=== PATIENT | male | born 1955 | race Caucasian/White ===

== ENCOUNTER → 2020-07-26 07:58 | Outpatient (CLI) | payer OTHER, SELFPAY ==
--- NOTE | 2020-07-26 08:03 | CT_ITS ---
STUDY: LOW DOSE CT LUNG CANCER SCREENING REASON FOR EXAM: Male, 64 years old. COPD/LUNG NODULES, LUNG SCREENING, SMOKER-1PPD X 40 YRS RADIATION DOSAGE (If Supplied By Facility): CTDIvol = ( 3.22 ) mGy, DLP = ( 110.23 ) mGycm TECHNIQUE: No contrast was administered. Low dose technique was utilized (average mAS-38 and kVp 120). 1.25 mm axial source images with a slice interval of 1.25-mm were reconstructed in lung windows. 2.5 mm axial source images with a slice interval of 2.5-mm were reconstructed in lung windows. 5.0 mm axial source images with a slice interval of 5.0-mm were reconstructed in soft tissue windows. Nodule measured using lung windows on PACS and/or independent workstation with automated measurement of minimum and maximum diameter. Nodule measurement reported as average diameter rounded to the nearest whole number. Growth is defined as an increase ins size of greater than 1.5 mm. COMPARISON: None. NODULES: 3 mm calcified granuloma in the anterior aspect of the left upper lobe. Emphysema: There is evidence of bilateral pleural plaque calcification more prominent in the left hemithorax. Hyperinflation. Mild degree of emphysematous changes. Aorta: Atherosclerotic plaque formation of the aortic arch and descending thoracic aorta. Coronary arteries: Coronary artery calcification. Heart: Not enlarged Pulmonary artery: Unremarkable Mediastinal nodes: Small benign appearing mediastinal lymph nodes. Other chest and abdominal findings: CT/Low Dose CT Lung Screening IMPRESSION: Lung-RADS category 2 - Continue annual screening with LDCT in 12 months. IMPORTANT NOTES FOR USE: ACR Lung-RADS Version 1.0 Assessment Categories Release Date: October 11, 2013 Category: Coded 0-4 bases on nodule(s) with highest degree of suspicion. Negative screen is defined as categories 1 and 2; a positive screen is defined as categories 3 and 4. Category 3 and 4A nodules that are unchanged on interval CT should be coded as category 2, and individuals returned to screening in 12 months. Category 4X: Category 3 or 4 nodules with additional imaging findings that increase the suspicion of lung cancer, such as spiculation, GGN that doubles in size in 1 year, enlarged lymph notes, etc. Category Modifiers: S (significant finding unrelated to lung cancer) and C (prior history of treated lung cancer) may be added to the 0-4 Lung-RADS Electronically Signed: Tacho Begum MD at 8:44 EST , Service support ,
== END ==
DX: R91.1 Solitary pulmonary nodule (principal)
CPT/HCPCS: 71271

== ENCOUNTER → 2021-07-31 08:19 | Outpatient (CLI) | payer OTHER, SELFPAY ==
--- NOTE | 2021-07-31 08:28 | CT_ITS ---
STUDY: LOW DOSE CT LUNG CANCER SCREENING REASON FOR EXAM: Male, 65 years old. LUNG NODULES. Patient smoked 1 pack per day for 50 years. RADIATION DOSAGE (If Supplied By Facility): CTDIvol = ( 1.59 ) mGy, DLP = ( 56.99 ) mGycm TECHNIQUE: No contrast was administered. Low dose technique was utilized (average mAS-38 and kVp 120). 1.25 mm axial source images with a slice interval of 1.25-mm were reconstructed in lung windows. 2.5 mm axial source images with a slice interval of 2.5-mm were reconstructed in lung windows. 5.0 mm axial source images with a slice interval of 5.0-mm were reconstructed in soft tissue windows. Nodule measured using lung windows on PACS and/or independent workstation with automated measurement of minimum and maximum diameter. Nodule measurement reported as average diameter rounded to the nearest whole number. Growth is defined as an increase ins size of greater than 1.5 mm. COMPARISON: Comparison is made with prior study dated 07/26/2020. NODULES: Stable 5.6 mm slightly lobulated nodule in the peripheral lateral anterior aspect of the right lower lobe as seen on axial image #157. Stable 3 mm calcified granuloma in the anterior aspect of the left upper lobe. Emphysema: Stable focal area of groundglass appearance in the right middle lobe. Stable bilateral pleural plaque calcification. Stable calcification along the left major fissure. Endobronchial lesion: None Aorta: Atherosclerotic plaque formation. Coronary arteries: Coronary artery calcification. Heart: Unremarkable Pulmonary artery: Unremarkable. Mediastinal nodes: Small benign-appearing mediastinal lymph nodes. Other chest and abdominal findings: CT/Low Dose CT Lung Screening IMPRESSION: Lung-RADS category 2 - Continue annual screening with LDCT in 12 months. IMPORTANT NOTES FOR USE: ACR Lung-RADS Version 1.1 Assessment Categories Release Date: 2018 Category: Coded 0-4 bases on nodule(s) with highest degree of suspicion. Negative screen is defined as categories 1 and 2; a positive screen is defined as categories 3 and 4. Category 3 and 4A nodules that are unchanged on interval CT should be coded as category 2, and individuals returned to screening in 12 months. Category 4X: Category 3 or 4 nodules with additional imaging findings that increase the suspicion of lung cancer, such as spiculation, GGN that doubles in size in 1 year, enlarged lymph notes, etc. Category Modifiers: S (significant finding unrelated to lung cancer) Electronically Signed: Tacho Begum MD at 12:02 EST Reading Location ID and State: [facility] / [place] , Service support ,
== END ==
DX: R91.1 Solitary pulmonary nodule (principal); J44.9 Chronic obstructive pulmonary disease, unspecified; I73.9 Peripheral vascular disease, unspecified; I10 Essential (primary) hypertension; J98.4 Other disorders of lung; F17.210 Nicotine dependence, cigarettes, uncomplicated
CPT/HCPCS: 71271

== ENCOUNTER → 2022-09-26 | Outpatient (CLI) | payer OTHER, SELFPAY ==
--- NOTE | 2022-09-26 13:02 | CT_ITS ---
STUDY: LOW DOSE CT LUNG CANCER SCREENING REASON FOR EXAM: Male, 66 years old. One pack per day smoker x40 years, history of hypertension RADIATION DOSAGE (If Supplied By Facility): CTDIvol = ( 2.39 ) mGy, DLP = ( 83.10 ) mGycm TECHNIQUE: No contrast was administered. Low dose technique was utilized (average mAS-38 and kVp 120). 1.25 mm axial source images with a slice interval of 1.25-mm were reconstructed in lung windows. 2.5 mm axial source images with a slice interval of 2.5-mm were reconstructed in lung windows. 5.0 mm axial source images with a slice interval of 5.0-mm were reconstructed in soft tissue windows. COMPARISON: 07/31/2021 Findings: Lung windows show the lungs to be mildly hyperexpanded with subtle bleb formation noted in the apices. Chronic interstitial changes noted in both lung royal with nonspecific pleural thickening and stable pleural calcifications. There is a stable 5.6 mm lobulated nodule in the periphery of the right lower lobe on axial image 152. No organized infiltrate effusion or suspicious new noncalcified mass or nodule. Limited soft tissue windows show normal-appearing thyroid gland. Peripheral calcifications in the thoracic aorta without aneurysm. Scattered subcentimeter in short axis dimension mediastinal and perihilar lymph nodes. There are calcified coronary vessels without pericardial effusion. Bony structures show degenerative change CT/Low Dose CT Lung Screening IMPRESSION: Lung-RADS category 2 - Continue annual screening with LDCT in 12 months. IMPORTANT NOTES FOR USE: ACR Lung-RADS Version 1.1 Assessment Categories Release Date: 2018 Category: Coded 0-4 bases on nodule(s) with highest degree of suspicion. Negative screen is defined as categories 1 and 2; a positive screen is defined as categories 3 and 4. Category 3 and 4A nodules that are unchanged on interval CT should be coded as category 2, and individuals returned to screening in 12 months. Category 4X: Category 3 or 4 nodules with additional imaging findings that increase the suspicion of lung cancer, such as spiculation, GGN that doubles in size in 1 year, enlarged lymph notes, etc. Category Modifiers: S (significant finding unrelated to lung cancer) Electronically Signed: Eros Lamb MD at 13:58 EDT ,
== END | disposition home or self-care (01) ==
LOC: CT 13:01
PROVIDERS: Referring Provider Nurse Practitioner Family; Visit Provider Nurse Practitioner Family
DX: Z12.2 Encounter for screening for malignant neoplasm of respiratory organs (principal); F17.210 Nicotine dependence, cigarettes, uncomplicated; R91.1 Solitary pulmonary nodule
CPT/HCPCS: 71271

== ENCOUNTER → 2023-10-21 | Outpatient (CLI) | payer OTHER, SELFPAY ==
--- NOTE | 2023-10-21 07:51 | CT_ITS ---
STUDY: LOW DOSE CT LUNG CANCER SCREENING REASON FOR EXAM: Male, 67 years old. LUNG NODULES. Patient smokes 1 pack per day for 40 years. RADIATION DOSAGE (If Supplied By Facility): CTDIvol = ( 3.02 ) mGy, DLP = ( 105.33 ) mGycm TECHNIQUE: No contrast was administered. Low dose technique was utilized (average mAS-38 and kVp 120). 1.25 mm axial source images with a slice interval of 1.25-mm were reconstructed in lung windows. 2.5 mm axial source images with a slice interval of 2.5-mm were reconstructed in lung windows. 5.0 mm axial source images with a slice interval of 5.0-mm were reconstructed in soft tissue windows. COMPARISON: Comparison is made with prior study dated September 26, 2022. NODULES: Stable 3 mm calcified granuloma in the anterior aspect of the left upper lobe. Stable 4.5 mm noncalcified nodule in the anterior lateral aspect of the right lower lobe as seen on axial image #164. Emphysema: Hyperinflation. Emphysematous changes. Bilateral pleural plaque calcification more prominent in the left hemithorax. Endobronchial lesion: None Aorta: Atherosclerotic plaque formation of the aortic arch and descending thoracic aorta.. CORONARY ARTERIES: Coronary artery calcification is seen. Heart: Unremarkable. Pulmonary artery: Unremarkable Mediastinal nodes: Small mediastinal lymph nodes. Other chest and abdominal findings: CT/Low Dose CT Lung Screening IMPRESSION: Lung-RADS category 2 - Continue annual screening with LDCT in 12 months. IMPORTANT NOTES FOR USE: ACR Lung-RADS Version 1.1 Assessment Categories Release Date: 2018 Category: Coded 0-4 bases on nodule(s) with highest degree of suspicion. Negative screen is defined as categories 1 and 2; a positive screen is defined as categories 3 and 4. Category 3 and 4A nodules that are unchanged on interval CT should be coded as category 2, and individuals returned to screening in 12 months. Category 4X: Category 3 or 4 nodules with additional imaging findings that increase the suspicion of lung cancer, such as spiculation, GGN that doubles in size in 1 year, enlarged lymph notes, etc. Category Modifiers: S (significant finding unrelated to lung cancer) Electronically Signed: Tacho Begum MD at 10:05 EDT ,
--- NOTE | 2023-10-21 07:54 | US_ITS ---
STUDY: ABDOMINAL ULTRASOUND - RIGHT UPPER QUADRANT; ELASTOGRAPHY REASON FOR VISIT: Male, 67 years old. Hypertension. Alcohol abuse. TECHNIQUE: Ultrasound evaluation of the right upper quadrant was performed with real-time and static turpin-scale imaging. Point quantification shear wave elastography was performed ([place]). TECHNICAL QUALITY: Adequate. COMPARISON: None. FINDINGS: Liver: The liver measures 16.3 cm. There is increased echogenicity consistent with fatty infiltration. The bile ducts are within normal limits. There is hepatic color flow. The direction of portal flow is hepatopetal. There is no demonstrated mass lesion. Median liver stiffness measured 5.1 kPa. Gallbladder: Normal distended gallbladder. The gallbladder wall measures 2 mm. There is a negative sonographic Harrison''s sign. There is no pericholecystic fluid. There are no gallstones. Common Bile Duct (C.B.D.): The common bile duct measures 4 mm. Pancreas: There is normal echogenicity of the visualized pancreas. There is no demonstrated pancreatic mass or cyst. Right Kidney: Normal size of the right kidney. The right kidney measures 9.9 cm x 5 cm x 5.2 cm. Normal renal cortex. The right cortex measures 1.4 cm. There is no demonstrated renal mass or cyst. There is no right hydronephrosis. US/ABD Limited w/ Elastography IMPRESSION: 1. Liver stiffness measures 5.1 kPa compatible with F0-F1 (Normal to mild liver fibrosis) Metavir score. Electronically Signed: Tacho Begum MD at 15:27 EDT ,
== END | disposition home or self-care (01) ==
LOC: CT 07:47
PROVIDERS: Referring Provider Nurse Practitioner Family; Visit Provider Nurse Practitioner Family
DX: Z12.2 Encounter for screening for malignant neoplasm of respiratory organs (principal); R91.8 Other nonspecific abnormal finding of lung field; F17.210 Nicotine dependence, cigarettes, uncomplicated; I10 Essential (primary) hypertension; I73.9 Peripheral vascular disease, unspecified
CPT/HCPCS: 71271; 76705; 76981

== ENCOUNTER → 2025-01-05 | Outpatient (CLI) | payer OTHER, SELFPAY ==
--- NOTE | 2025-01-05 12:39 | CT_ITS ---
PROCEDURE: CTA ABD W/RUNOFF W/WO CONTRAST 01/05/2025 REASON FOR EXAM: ATHEROSCLEROSIS OF [place] ARTERIES OF EXTREMITIES WITH INTERMITTE TECHNIQUE: CTA ABD W/RUNOFF W/WO CONTRAST Multiplanar Sagittal and Coronal images were obtained. CONTRAST: Isovue 370 VOLUME: 100 mL One or more dose reduction techniques were used (e.g., Automated exposure control, adjustment of the mA and/or kV according to patient size, use of iterative reconstruction technique). RADIATION DOSE SUMMARY: CTDlvol: 4.32 mGy DLP: 1040.83 mGycm COMPARISON: None. FINDINGS: Aorta: Atherosclerotic calcifications. No aneurysm. Iliac Arteries: Atherosclerotic calcifications. The right common, internal and external iliac arteries are patent. The left common and external iliac arteries are occluded. Celiac: Patent. SMA: Patent. POLO : Severe narrowing at the origin. Renal arteries: Severe narrowing of the bilateral renal arteries from calcified plaques. Right lower extremity arteries: The common femoral and femoral profunda arteries are patent. The right femoral artery is patent in the upper two thirds and is 90% stenotic distally. Mild stenosis of the right popliteal artery. The 3 runoff arteries to the right foot are patent. Left lower extremity arteries: 30% stenosis of the left common femoral artery. The femoris profunda is patent. 70% stenosis of the distal left femoral artery. Mild stenosis of the left popliteal artery. The renal arteries to the foot are patent. Extravascular Findings: The lungs are clear. 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 Simple cysts in the right kidney with the largest is measuring 2 cm. No hydronephrosis. No nephrolithiasis. The adrenal glands, pancreas, spleen and liver are unremarkable. The bladder is decompressed but otherwise unremarkable. Extensive sigmoid colon diverticulosis with no evidence of acute diverticulitis. No bowel wall thickening. No bowel obstruction. No free air or free fluid. No acute bony abnormalities. CT/CTA Abd w/Runoff W/WO Contrast IMPRESSION: Severe narrowing of the bilateral renal arteries proximally from calcified plaq ues. The left common and external iliac arteries are occluded. 90% narrowing of the distal right femoral artery. 70% narrowing of the distal left femoral artery. The three runoff arteries to the lower extremities are present. Additional findings are as detailed. Reading Location: [id number]
== END | disposition home or self-care (01) ==
LOC: CT 12:24
DX: I70.213 Atherosclerosis of native arteries of extremities with intermittent claudication, bilateral legs (principal)
CPT/HCPCS: 75635; Q9967; A4216

== ENCOUNTER → 2025-02-24 | Outpatient (CLI) | payer OTHER, SELFPAY ==
--- NOTE | 2025-02-24 15:57 | CT_ITS ---
PROCEDURE: CTA HEAD AND NECK W/ CONTRAST 02/24/2025 REASON FOR EXAM: CONFIRM OCCLUSION OR R ICA AND DEGREE OF L ICA STENOSIS TECHNIQUE: Procedure Code: [id number] Modality: CT Procedure: CTA HEAD AND NECK W/ CONTRAST Multiplanar Sagittal and Coronal images were obtained. 3D post processing was performed CONTRAST: Isovue 370 VOLUME: 100 mL One or more dose reduction techniques were used (e.g., Automated exposure control, adjustment of the mA and/or kV according to patient size, use of iterative reconstruction technique). RADIATION DOSE SUMMARY: CTDlvol: 31 mGy DLP: 1547.62 mGycm COMPARISON: None FINDINGS: Imaging of the unenhanced brain was performed. There is a mild degree of cerebral atrophy in keeping with the patient's age. Atherosclerotic calcification of the cavernous portions of the internal carotid arteries bilaterally. The sinuses are clear. Aortic Arch: Extensive atherosclerotic plaque formation of the aortic arch. This extends into the ascending thoracic aorta as well as the descending thoracic aorta. Brachiocephalic and Subclavians: Atherosclerotic plaque formation at the origin of the left subclavian artery causing a subtotal stenosis. There is also evidence of calcific plaques and high-grade stenosis of the right brachiocephalic artery. RIGHT Carotid: Right CCA: Occluded at its origin. Right ICA: Not visualized. Dense calcific plaque at the origin of the right internal carotid artery. Mild flow through the cervical carotid. Right ECA: Not visualized. LEFT Carotid: Left CCA: Extensive plaque formation causing at least 50-60% stenosis. Left ICA: Calcific plaque at the origin of the left internal carotid artery causing 50% narrowing. There is calcific plaque and narrowing of the left petrous portion of the internal carotid artery. Left ECA: Unremarkable Vertebrals: Codominant. Arise from the subclavians. Both vertebrals form the basilar. RIGHT Vertebral: Unremarkable. LEFT Vertebral: Unremarkable. Anatomy: [place] anatomy is normal. Aneurysm or avm: No intracranial aneurysms or large vascular malformations are identified. Anterior cerebral arteries: Unremarkable: Middle cerebral arteries: Unremarkable. Basilar artery: Unremarkable. Posterior cerebral arteries: Unremarkable. Other major branches of the posterior circulation: Unremarkable. Major venous structures: Unremarkable. 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 There is reconstitution of a small right internal carotid artery. Moderate stenosis at the origin of the left internal carotid artery as well as the left petrous portion of the internal carotid artery. Reading Location: [id number]
== END | disposition home or self-care (01) ==
LOC: CT 15:54
DX: I65.23 Occlusion and stenosis of bilateral carotid arteries (principal)
CPT/HCPCS: 70496; 70498; Q9967